=== PATIENT | female | born 1995 | race Caucasian/White ===

== ENCOUNTER 2017-01-12 08:25 | Emergency (ER) | payer BC, OTHER ==
[~2017-01-12] VITALS: Wt 143.0 kg
[~2017-01-12 08:25] MED LIST: NO MEDS
[2017-01-12 08:56] LABS: URINE BLOOD (Dip) POC Negative (NEGATIVE)
--- NOTE | 2017-01-12 08:59 | ERD ---
ER Documentation Chief Complaint Date/Time DATE: 01/12/17 TIME: 08:54 Chief Complaint sore throat for a few days. progressively getting worse. difficult to drink HPI This is a 21-year-old female with a known history of a recent urinary tract infection diagnosed at [facility], 5 days prior to arrival. The patient at that time had been given Macrobid. She however denied any frequency urgency or dysuria had presented to [email or web address] states for evaluation for dehydration. The patient indicates that over the past several days she has had dysphagia with a sore throat. She does however that she is able to tolerate solid and liquid intake but it hurts whenever she swallows. She denies any abdominal pain. She has had no fevers or shaking or chills. She indicates that she has had multiple similar episodes in the past with strep throat. She denies any rashes. The patient does state she has a history of anxiety but does not take any anti-anxiety at this time. She has been taking 300 mg of Motrin for analgesic control which improves her sore throat. The patient denies a productive or nonproductive cough ROS All systems reviewed and are negative except as per history of present illness. Medications Home Meds Reported Medications [No Meds] No Conflict Check 02/20/14 Allergies Allergies: Coded Allergies: No Known Allergy (Unverified , 01/12/17) PMhx/Soc History of Surgery: No Anesthesia Reaction: No Hx Neurological Disorder: No Hx Respiratory Disorders: No Hx Cardiac Disorders: No Hx Psychiatric Problems: No Hx Miscellaneous Medical Probl: Yes (gastric reflux) Hx Alcohol Use: No Hx Substance Use: No Hx Tobacco Use: No Smoking Status: Never smoker Physical Exam Vitals Vital Signs Date Time Temp Pulse Resp B/P Pulse Ox O2 Delivery O2 Flow Rate FiO2 01/12/17 08:26 98.9 81 20 129/80 98 Physical Exam Constitutional:Well-developed. Well-nourished. HEENT:Normocephalic. Atraumatic.Pupils were equal round reactive to light. Moist mucous membranes. Right-sided tonsillar exudate with enlargement of the right tonsil. Uvula midline and no macroglossia or angioedema. Neck: No nuchal rigidity. Right anterior cervical lymphadenopathy. No posterior cervical spine tenderness or step-offs. Respiratory: Not using accessory muscles of respiration.Lungs were clear to auscultation bilaterally. No rhonchi. No rales. No wheezing. Cardiovascular: Regular rate regular rhythm.No murmurs. No rubs were appreciated.S1, S2 normal. Distal pulses are palpable 2+ bilaterally. GI: Abdomen was soft. Nontender. Non Distended. No pulsatile abdominal masses or bruits. No rebound. No guarding. Bowel sounds were present and normal. Procedures/MDM This patient presented to the emergency department with 3 of the 4 center criteria to suggest acute pharyngitis. The patient received Bicillin injection in the emergency department. She was given a medication refill of her Motrin to take for analgesic control. She had no physical exam findings to suggest Anthony's angina and no dental caries to suggest a dental abscess. I obtained a urinalysis to reevaluate for the patient's urinary tract infection. She had a prescription of Macrobid which she had almost completed and was instructed to continue to finish this medication. The patient was discharged home in fair condition. They were instructed to return to the emergency department at any time if there was any worsening of their condition. The patient stated they would follow up with their PCP in the next 24-48 hours to initiate a suitable medication regimen under the care of their PCP as well as to allow their PCP to monitor any drug reactions. The patient was discharged home with prescriptions after they gave informed consent to the new medication. They were also fully informed by myself on the adverse effects and adverse drug interactions in order to provide adequate safeguards to prevent possible adverse reactions to medications. Departure Diagnosis: Primary Impression: Acute pharyngitis Pharyngitis/tonsillitis etiology: streptococcus Qualified Code: J02.0 - Acute streptococcal pharyngitis Condition: Rosanna HECKMASHAJOHN BRYAN Jan 12, 2017 08:59
[2017-01-12] MEDS ORDERED: IBUP-1542 PO (09:00)
[2017-01-12] MEDS ORDERED: PENICILLIN G BENZ 1.2 MIL UNIT SYG IM ONE (09:00)
[2017-01-12 09:29] LABS: ADD UMIC NO; URINE BILIRUBIN (Dip) NEGATIVE (NEGATIVE); URINE BLOOD (Dip) NEGATIVE (NEGATIVE); URINE COLOR LT. YELLOW (YELLOW); URINE GLUCOSE (Dip) NEGATIVE (NEGATIVE); URINE KETONES (Dip) NEGATIVE (NEGATIVE); URINE LEUKOCYTE ESTERASE (Dip) NEGATIVE (NEGATIVE); URINE NITRITE (Dip) NEGATIVE (NEGATIVE); URINE TOTAL PROTEIN (Dip) NEGATIVE (NEGATIVE); URINE UROBILINOGEN (Dip) 0.2 E.U./dL (0.1-1.0)
== END 2017-01-12 09:47 | disposition home or self-care (01) ==
LOC: FTE 08:25
DX: J02.0 Streptococcal pharyngitis (principal); N39.0 Urinary tract infection, site not specified
CPT/HCPCS: 81003; 87086; J0561; 96372

== ENCOUNTER 2017-01-14 10:48 | Emergency (ER) | payer OTHER ==
[~2017-01-14] VITALS: Ht 157.5 cm; Wt 89.0 kg
[~2017-01-14 10:48] MED LIST changes: +IBUP-1542 PO
[2017-01-14 10:53] VITALS: Ht 157.5 cm; Wt 89.0 kg
[2017-01-14] MEDS ORDERED: POLY10DR19 BOTH EYES (11:16)
--- NOTE | 2017-01-14 11:44 | ERD ---
ER Documentation Chief Complaint Date/Time DATE: 01/14/17 TIME: 11:40 Chief Complaint margaret eye discharge, worse left one HPI This patient is a 21-year-old female with no significant medical history presenting to the emergency department for bilateral eye redness, dryness, and discharge which began 2 days ago. The patient states his symptoms have stayed the same. Currently the symptoms are mild. The patient did have bilateral eyelash crusting and it was difficult to open her eyes this morning. The patient denies fevers, chills, urinary symptoms, or other symptoms at this time. The patient has had no visual changes. Patient does not wear contacts. The patient was seen here in this emergency department 2 days ago and was treated successfully for strep pharyngitis. Currently her odynophagia has resolved. ROS All systems reviewed and are negative except as per history of present illness. Medications Home Meds Active Scripts Polymyxin B Sulfate-TMP* (Polymyxin B-TMP Eye Drops*) 10 Ml Drops, 1 DROP BOTH EYES QID for 7 Days, #1 BOTTLE Prov:SHANICE RAYO PA-C 01/14/17 Ibuprofen* (Motrin*) 600 Mg Tab, 600 MG PO Q6, #30 TAB Prov:JOHN FLANAGAN 01/12/17 Reported Medications [No Meds] No Conflict Check 02/20/14 Allergies Allergies: Coded Allergies: No Known Allergy (Unverified , 01/12/17) PMhx/Soc History of Surgery: No Anesthesia Reaction: No Hx Neurological Disorder: No Hx Respiratory Disorders: No Hx Cardiac Disorders: No Hx Psychiatric Problems: No Hx Miscellaneous Medical Probl: No Hx Alcohol Use: No Hx Substance Use: No Hx Tobacco Use: No Smoking Status: Never smoker FmHx Noncontributory for chief complaint. Physical Exam Vitals Vital Signs Date Time Temp Pulse Resp B/P Pulse Ox O2 Delivery O2 Flow Rate FiO2 01/14/17 10:53 98.0 86 18 135/72 99 Physical Exam Const: The patient is resting comfortably in no acute distress. Head: Atraumatic Eyes: There is bilateral conjunctival injection with some eyelash crusting present. There is no active discharge currently. EOMs are intact without pain. ENT: Normal External Ears, Nose and Mouth. Neck: Full range of motion..~ No meningismus. Resp: Clear to auscultation bilaterally Cardio: Regular rate and rhythm, no murmurs Abd: Soft, non tender, non distended. Normal bowel sounds Skin: No petechiae or rashes Back: No midline or flank tenderness Ext: No cyanosis, or edema Neur: Awake and alert Psych: Normal Mood and Affect Procedures/MDM 21-year-old female presents secondary to complaints of bilateral eye redness, irritation, and discharge. On physical examination the patient's vitals are within normal limits. Examination of the eye reveals conjunctival injection bilaterally with some eyelash crusting. EOMs are intact without pain. I have low suspicion for periorbital cellulitis, orbital cellulitis, globe fracture or rupture, septicemia, or other emergent conditions at this time. The patient will be treated as an outpatient with a prescription for Polytrim ophthalmic drops. The patient agrees with the discharge plan and diagnosis. The patient was advised to follow-up with her primary care physician and return to the emergency department immediately with any new or worsening symptoms. She demonstrates good understanding of this information. All questions and concerns were addressed. Departure Diagnosis: Primary Impression: Conjunctivitis Condition: Fair Patient Instructions: Conjunctivitis Caused by Infection Referrals: [facility] YOU HAVE RECEIVED A MEDICAL SCREENING EXAM AND THE RESULTS INDICATE THAT YOU DO NOT HAVE A CONDITION THAT REQUIRES URGENT TREATMENT IN THE EMERGENCY DEPARTMENT. FURTHER EVALUATION AND TREATMENT OF YOUR CONDITION CAN WAIT UNTIL YOU ARE SEEN IN YOUR DOCTORS OFFICE WITHIN THE NEXT 1-2 DAYS. IT IS YOUR RESPONSIBILITY TO MAKE AN APPOINTMENT FOR FOLOW-UP CARE. IF YOU HAVE A PRIMARY DOCTOR --you should call your primary doctor and schedule an appointment IF YOU DO NOT HAVE A PRIMARY DOCTOR YOU CAN CALL OUR PHYSICIAN REFERRAL HOTLINE AT IF YOU CAN NOT AFFORD TO SEE A PHYSICIAN YOU CAN CHOSE FROM THE FOLLOWING [facility] [address] [facility]. [facility] [address] [facility] [address] [facility] [address] [facility]. [facility] [address] [facility]. [employer] [facility] [address] Additional Instructions: Follow-up with your primary care physician within 1 week. Return to the emergency department immediately should you have any new or worsening symptoms, uncontrolled fevers, or other unexplained symptoms. Take all medications as directed. SHANICE RAYO PA-C Jan 14, 2017 11:44
== END 2017-01-14 11:22 | disposition home or self-care (01) ==
LOC: FTE 10:48
DX: H10.9 Unspecified conjunctivitis (principal)
CPT/HCPCS: 99283

== ENCOUNTER 2017-01-28 16:35 | Emergency (ER) | payer OTHER ==
[~2017-01-28] VITALS: Wt 136.0 kg
[~2017-01-28 16:35] MED LIST changes: +POLY10DR19 BOTH EYES
[2017-01-28] MEDS ORDERED: PRED20TA PO (16:57)
[2017-01-28] MEDS ORDERED: MECL-77 PO (16:57)
[2017-01-28] MEDS ORDERED: AZIT250T94 PO (16:57)
--- NOTE | 2017-01-28 17:04 | ERD ---
ER Documentation Chief Complaint Date/Time DATE: 01/28/17 TIME: 17:03 Chief Complaint BILATERAL EAR PAIN WITH NO FEVER. MILD DIZZINESS WITH NO NEURO DEFICIT HPI 21-year-old female presents with bilateral ear pain and sensation of a spinning type dizziness for last 3 days. She may have some mild congestion cough. She denies fevers, vomiting, abdominal pain, chest pain or shortness breath, neck stiffness, head injury or headache or visual changes. ROS All systems reviewed and are negative except as per history of present illness. Medications Home Meds Active Scripts Meclizine Hcl* (Meclizine Hcl*) 25 Mg Tablet, 25 MG PO Q8H Y for DIZZINESS, #14 TAB Prov:NENO SHULTZ MD 01/28/17 Prednisone* (Prednisone*) 20 Mg Tab, 40 MG PO DAILY for 4 Days, TAB Prov:NENO SHULTZ MD 01/28/17 Azithromycin* (Zithromax*) 250 Mg Tablet, 250 MG PO .ZPACK DIRECTED, #6 TAB TAKE 500 MG (2 TABS) THE FIRST DAY THEN 250 MG (1 TAB) DAYS 2-5 Prov:NENO SHULTZ MD 01/28/17 Polymyxin B Sulfate-TMP* (Polymyxin B-TMP Eye Drops*) 10 Ml Drops, 1 DROP BOTH EYES QID for 7 Days, #1 BOTTLE Prov:SHANICE RAYO PA-C 01/14/17 Ibuprofen* (Motrin*) 600 Mg Tab, 600 MG PO Q6, #30 TAB Prov:JOHN FLANAGAN 01/12/17 Reported Medications [No Meds] No Conflict Check 02/20/14 Allergies Allergies: Coded Allergies: No Known Allergy (Unverified , 01/12/17) PMhx/Soc History of Surgery: No Anesthesia Reaction: No Hx Neurological Disorder: No Hx Respiratory Disorders: No Hx Cardiac Disorders: No Hx Psychiatric Problems: No Hx Miscellaneous Medical Probl: No Hx Alcohol Use: No Hx Substance Use: No Hx Tobacco Use: No Physical Exam Vitals Vital Signs Date Time Temp Pulse Resp B/P Pulse Ox O2 Delivery O2 Flow Rate FiO2 01/28/17 16:41 98.8 72 21 140/75 99 Physical Exam Const: [] Alert, [id number] per Head: Atraumatic Eyes: Normal Conjunctiva ENT: Normal External Ears, Nose and Mouth. TMs are bulging with yellow fluid bilaterally. There is no mastoid tenderness. Neck: Full range of motion..~ No meningismus. Resp: Clear to auscultation bilaterally Cardio: Regular rate and rhythm, no murmurs Abd: Soft, non tender, non distended. Normal bowel sounds Skin: No petechiae or rashes Back: No midline or flank tenderness Ext: No cyanosis, or edema Neur: Awake and alert Psych: Normal Mood and Affect Procedures/MDM Patient presents with URI symptoms, signs of otitis media and reproducible or peripheral vertigo. She likely has otitis media with labyrinthitis. Signs or symptoms do not suggest meningitis, central vertigo, additional emergent causes of patient's presenting complaints. She will treated with Zithromax, short course of prednisone for eustachian tube dysfunction and Antivert. The patient was stable with no new complaints during the ER course. Clinically, there is no current evidence to suggest meningitis, sepsis, acute abdomen, pneumonia, acute coronary syndrome, pulmonary embolism, or any other emergent condition appearing to require further evaluation or hospitalization. The patient should certainly return for any new or worsening symptoms per the aftercare instructions. They should otherwise follow-up with her primary care doctor for reevaluation this week. Departure Diagnosis: Primary Impression: Labyrinthitis of both ears Additional Impression: Ear problem Laterality: bilateral Qualified Code: H93.93 - Ear problem, bilateral Condition: Stable Patient Instructions: Inner Ear Problems: Causes of Dizziness (Vertigo), Otitis Media, Abx Tx (Adult) Additional Instructions: Recheck for new or worsening symptoms with primary care doctor. NENO SHULTZ MD Jan 28, 2017 17:04
== END 2017-01-29 00:07 | disposition home or self-care (01) ==
LOC: FTE 16:35
DX: H83.03 Labyrinthitis, bilateral (principal)
CPT/HCPCS: 99284

== ENCOUNTER 2017-03-07 18:54 | Emergency (ER) | payer BC, OTHER ==
[~2017-03-07] VITALS: Ht 160 cm; Wt 136.4 kg
[~2017-03-07 18:54] MED LIST changes: +AZIT250T94 PO; +MECL-77 PO; +PRED20TA PO
[2017-03-07 18:57] VITALS: Ht 160 cm; Wt 136.4 kg
[2017-03-07] MEDS ORDERED: GUAI120S26 PO (19:06)
[2017-03-07] MEDS ORDERED: ALBU8.5H3 INH (19:06)
[2017-03-07] MEDS ORDERED: IBUP-1542 PO (19:06)
[2017-03-07] MEDS ORDERED: CETI10CA PO (19:06)
[2017-03-07] MEDS ORDERED: AZIT250T94 PO (19:06)
--- NOTE | 2017-03-07 19:11 | ERD ---
ER Documentation Chief Complaint Date/Time DATE: 03/07/17 TIME: 19:09 Chief Complaint body aches, cough and weakness x1 week HPI 21-year-old female presents here in emergency department for complaints of body aches cough runny nose nasal congestion generalized body weakness for 1 week. Patient has been having dry cough, with on and off wheezing at times. Patient does not have any chest or palpitations. Patient did not take any medications of symptoms. Patient denies any sick contacts. Patient denies any sore throat or ear pain. ROS All systems reviewed and are negative except as per history of present illness. Medications Home Meds Active Scripts Azithromycin* (Zithromax*) 250 Mg Tablet, 250 MG PO .ZPACK DIRECTED, #6 TAB TAKE 500 MG (2 TABS) THE FIRST DAY THEN 250 MG (1 TAB) DAYS 2-5 Prov:LAURYN LEACH NP 03/07/17 Albuterol Sulfate* (Proair HFA*) 8.5 Gm Hfa.aer.ad, 2 PUFF INH Q4H Y for WHEEZING AND SOB, #1 INHALER Prov:LAURYN LEACH NP 03/07/17 Ibuprofen* (Motrin*) 600 Mg Tab, 600 MG PO Q6H Y for PAIN AND OR ELEVATED TEMP, #30 TAB Prov:LAURYN LEACH NP 03/07/17 Cetirizine Hcl* (Zyrtec*) 10 Mg Capsule, 10 MG PO DAILY, #30 TAB.CHEW Prov:LAURYN LEACH NP 03/07/17 Ozqxcxccfac-Q-Yjtkylmbeh Hb* (Guaifenesin* DM Syrup) 120 Ml Syrup, 10 ML PO Q4H Y for COUGH, #120 ML Prov:LAURYN LEACH NP 03/07/17 Meclizine Hcl* (Meclizine Hcl*) 25 Mg Tablet, 25 MG PO Q8H Y for DIZZINESS, #14 TAB Prov:NENO SHULTZ MD 01/28/17 Prednisone* (Prednisone*) 20 Mg Tab, 40 MG PO DAILY for 4 Days, TAB Prov:NENO SHULTZ MD 01/28/17 Azithromycin* (Zithromax*) 250 Mg Tablet, 250 MG PO .SUE DIRECTED, #6 TAB TAKE 500 MG (2 TABS) THE FIRST DAY THEN 250 MG (1 TAB) DAYS 2-5 Prov:NENO SHULTZ MD 01/28/17 Polymyxin B Sulfate-TMP* (Polymyxin B-TMP Eye Drops*) 10 Ml Drops, 1 DROP BOTH EYES QID for 7 Days, #1 BOTTLE Prov:SHANICE RAYO PA-C 01/14/17 Ibuprofen* (Motrin*) 600 Mg Tab, 600 MG PO Q6, #30 TAB Prov:LETHA FLANAGANA 01/12/17 Reported Medications [No Meds] No Conflict Check 02/20/14 Allergies Allergies: Coded Allergies: No Known Allergy (Unverified , 03/07/17) PMhx/Soc Medical and Surgical Hx: pt denies Medical Hx, pt denies Surgical Hx History of Surgery: No Anesthesia Reaction: No Hx Neurological Disorder: No Hx Respiratory Disorders: No Hx Cardiac Disorders: No Hx Psychiatric Problems: No Hx Miscellaneous Medical Probl: No Hx Alcohol Use: No Hx Substance Use: No Hx Tobacco Use: No FmHx Family History: No coronary disease, No diabetes, No other Physical Exam Vitals Vital Signs Date Time Temp Pulse Resp B/P Pulse Ox O2 Delivery O2 Flow Rate FiO2 03/07/17 18:57 97.0 85 18 145/74 97 Physical Exam GENERAL: The patient is well developed and appropriate for usual state of health, in no apparent distress. HEENT: Atraumatic. Ears: Normal tympanic membrane, no erythema or bulging. No ear canal swelling. No ear discharge. Nose: Erythematous nasal turbinates with clear nasal discharge. Throat: oropharynx erythematous with postnasal drip. No tonsillar swelling or tonsillar exudates. No lymphadenopathy. CHEST: Clear to auscultation bilaterally. There are no rales, wheezes or rhonchi. HEART: Regular rate and rhythm. No murmurs, clicks, rubs or gallops. No S3 or S4. ABDOMEN: Soft, nontender and nondistended. Good bowel sounds. No rebound or guarding. No gross peritonitis. No gross organomegaly or masses. No Abdi sign or McBurney point tenderness. BACK: No midline or flank tenderness. EXTREMITIES: Equal pulses bilaterally. There is no peripheral clubbing, cyanosis or edema. No focal swelling or erythema. Full range of motion. Grossly neurovascularly intact. NEURO: Alert and oriented. Cranial nerves 2-12 intact. Motor strength in all 4 extremities with 5/5 strength. Sensation grossly intact. Normal speech and gait. SKIN: There is no apparent rash or petechia. The skin is warm and dry. HEMATOLOGIC AND LYMPHATIC: There is no evidence of excessive bruising or lymphedema. No gross cervical, axillary, or inguinal lymphadenopathy. Procedures/MDM Medical Decision Making: Patient symptoms are most likely consistent with acute bronchitis, possibly atypical infection. There is low suspicion for Pneumonia at this time since patients lungs sounds are clear, patient O2 saturation is normal and patient doesnt show any respiratory distress. Radiology exams are not indicated at this time. Patient does not have any wheezing. There is low suspicion for other cardiopulmonary emergencies at this time such as CHF, Pulmonary Embolism, Pneumothorax, Aortic Aneurysm or any other cardiopulmonary emergencies at this time. There is low suspicion for sepsis. Patient appears well and is hemodynamically stable. Patient does not have any fever. Disposition: Home. Condition: Stable Prescriptions: Guaifenesin DM Zyrtec ibuprofen albuterol azithromycin Instructions: Patient is advised to take medications as prescribed. Patient is advised to rest. Patient advised to increase fluid intake, do humidifier at home and if possible, do salt water gargles. Patient is advised that if symptoms are worse, shortness of breath, uncontrolled fever, stridor, vomiting, worst signs and symptoms to return to emergency department immediately. Otherwise, patient is advised to follow up with primary doctor in 5-7 days. Departure Diagnosis: Primary Impression: Acute bronchitis Bronchitis organism: unspecified organism Qualified Code: J20.9 - Acute bronchitis, unspecified organism Condition: Stable Patient Instructions: Bronchitis With Wheezing (Adult) LAURYN LEACH NP March 07, 2017 19:11
== END 2017-03-07 19:09 | disposition home or self-care (01) ==
LOC: E/R 18:54
DX: J20.9 Acute bronchitis, unspecified (principal)
CPT/HCPCS: 99284

== ENCOUNTER 2017-04-22 21:50 | Emergency (ER) | END 2017-04-23 01:15 | disposition home or self-care (01) | DX: R10.31 Right lower quadrant pain (principal); N30.00 Acute cystitis without hematuria; N76.0 Acute vaginitis; R10.2 Pelvic and perineal pain ==

== ENCOUNTER 2017-06-05 17:41 | Emergency (ER) | payer BC, OTHER ==
[~2017-06-05] VITALS: Ht 152.4 cm; Wt 138.5 kg
[~2017-06-05 17:41] MED LIST changes: +ALBU8.5H3 INH; +CEPH-443 PO; +CETI10CA PO; +CLOT30CR24 TOP; +GUAI120S26 PO; +METR500T PO; +TRAM50TA2 PO
[2017-06-05 17:44] VITALS: Ht 152.4 cm; Wt 138.5 kg
[2017-06-05] MEDS ORDERED: KETOROLAC 60 MG INJ IM STA (18:09)
--- NOTE | 2017-06-05 18:09 | ERD ---
ER Documentation Chief Complaint Date/Time DATE: 06/05/17 TIME: 18:00 Chief Complaint Complains of a headache HPI 21-year-old female presented emergency department for headache for 1 and half week, dysuria on and off for the past week. Also added nasal congestion. Denies that this is the worst headache of her life, head trauma, head injury, loss of consciousness, dizziness, blurry vision, changes in vision, light sensitivity, photophobia, ear pain, throat pain, difficulty swallowing, neck pain, shoulder pain, chest pain, cough, hemoptysis, abdominal pain, back pain, loss of appetite, nausea, vomiting, hematochezia, diarrhea, constipation, , the possibility of being , bladder and bowel incontinences, extremity weakness, extremity tenderness, numbness or tingling sensation, difficulty walking, recent travel, recent exposure to illness, recent antibiotic use in the last 3 months, fever, chills. Allergy: No known drug allergies. PMH: Gastritis, anxiety. Family medical history: Denies family history of stroke, heart attack before age 50. AO LMP: June 03, 2017. Medications: Surgery: Denies. Primary Social History: Full-time student. Working part-time. Denies smoking, use of alcohol, use of illegal drugs. ROS All systems reviewed and are negative except as per history of present illness. Medications Home Meds Active Scripts Meclizine Hcl* (Meclizine Hcl*) 25 Mg Tablet, 25 MG PO Q12 Y for DIZZINESS, #20 TAB Prov:KATHERYN ALMARAZ 06/05/17 Ibuprofen* (Motrin*) 800 Mg Tab, 800 MG PO Q8 Y for PAIN AND OR ELEVATED TEMP, # 30 TAB Prov:KATHERYN ALMARAZ 06/05/17 Amoxicillin/Potassium Clav (Amox-Clav 875-125 mg Tablet) 875-125 mg Tab, 1 TAB PO BID for 7 Days, #14 TAB Prov:KATHERYN ALMARAZ 06/05/17 Clotrimazole* (Clotrimazole* AF) 1% - 30 Gm Cream.gm., 1 APPLIC TOP BID for 7 Days, TUB Prov:LAURYN LEACH NP 04/23/17 Metronidazole* (Flagyl*) 500 Mg Tablet, 500 MG PO TID for 10 Days, TAB Prov:LAURYN LEACH NP 04/23/17 Cephalexin* (Keflex*) 500 Mg Capsule, 500 MG PO QID for 10 Days, CAP Prov:LAURYN LEACH NP 04/23/17 Ibuprofen* (Motrin*) 600 Mg Tab, 600 MG PO Q6H Y for PAIN AND OR ELEVATED TEMP, #30 TAB Prov:LAURYN LEACH NP 04/23/17 Tramadol HCl (Tramadol HCl) 50 Mg Tablet, 50 MG PO Q6 for SEVERE PAIN LEVEL 7-10 , #20 TAB Prov:LAURYN LEACH NP 04/23/17 Azithromycin* (Zithromax*) 250 Mg Tablet, 250 MG PO .SUE DIRECTED, #6 TAB TAKE 500 MG (2 TABS) THE FIRST DAY THEN 250 MG (1 TAB) DAYS 2-5 Prov:LAURYN LEACH NP 03/07/17 Albuterol Sulfate* (Proair HFA*) 8.5 Gm Hfa.aer.ad, 2 PUFF INH Q4H Y for WHEEZING AND SOB, #1 INHALER Prov:LAURYN LEACH NP 03/07/17 Ibuprofen* (Motrin*) 600 Mg Tab, 600 MG PO Q6H Y for PAIN AND OR ELEVATED TEMP, #30 TAB Prov:LAURYN LEACH NP 03/07/17 Cetirizine Hcl* (Zyrtec*) 10 Mg Capsule, 10 MG PO DAILY, #30 TAB.CHEW Prov:LAURYN LEACH NP 03/07/17 Vmvjphkodjq-U-Dwkwhgqazk Hb* (Guaifenesin* DM Syrup) 120 Ml Syrup, 10 ML PO Q4H Y for COUGH, #120 ML Prov:LAURYN LEACH NP 03/07/17 Meclizine Hcl* (Meclizine Hcl*) 25 Mg Tablet, 25 MG PO Q8H Y for DIZZINESS, #14 TAB Prov:NENO SHULTZ MD 01/28/17 Prednisone* (Prednisone*) 20 Mg Tab, 40 MG PO DAILY for 4 Days, TAB Prov:NENO SHULTZ MD 01/28/17 Azithromycin* (Zithromax*) 250 Mg Tablet, 250 MG PO .ZPACK DIRECTED, #6 TAB TAKE 500 MG (2 TABS) THE FIRST DAY THEN 250 MG (1 TAB) DAYS 2-5 Prov:NENO SHULTZ MD 01/28/17 Polymyxin B Sulfate-TMP* (Polymyxin B-TMP Eye Drops*) 10 Ml Drops, 1 DROP BOTH EYES QID for 7 Days, #1 BOTTLE Prov:SHANICE RAYO PA-C 01/14/17 Ibuprofen* (Motrin*) 600 Mg Tab, 600 MG PO Q6, #30 TAB Prov:JOHN FLANAGAN 01/12/17 Reported Medications [No Meds] No Conflict Check 02/20/14 Allergies Allergies: Coded Allergies: No Known Allergy (Unverified , 03/07/17) PMhx/Soc History of Surgery: No Anesthesia Reaction: No Hx Neurological Disorder: No Hx Respiratory Disorders: No Hx Cardiac Disorders: No Hx Psychiatric Problems: No Hx Miscellaneous Medical Probl: Yes (anemia, gastritis) Hx Alcohol Use: No Hx Substance Use: No Hx Tobacco Use: No Physical Exam Vitals Vital Signs Date Time Temp Pulse Resp B/P Pulse Ox O2 Delivery O2 Flow Rate FiO2 06/05/17 17:44 98.3 81 20 110/56 98 Physical Exam CONSTITUTIONAL: Well-appearing; well-nourished; in no apparent distress. HEAD: Normocephalic; atraumatic. EYES: Conjunctiva clear, sclera non-icteric, EOM intact. PERRL Ears: Hearing intact. EACs clear, TMs non-bulging, non-inflamed, translucent & mobile, ossicles normal appearance, No obstructions, no erythema, no discharges. 20% earwax bilaterally. Nose: No obstructions. No polyps. No external lesions. Mucosa non-inflamed. No external lesions, septum and turbinates normal. No rhinorrhea. No discharges. Frontal and maxillary sinus tenderness to palpation. MOUTH: Moist mucous membranes, no lesion, no obstructions, no vesicles, no thrush, patent airway Throat: Uvula in midline. Right tonsil is +1 with no erythema, no exudate. Left tonsil is +1 with no erythema, no exudate. Tolerating secretions well. Good gag reflex. Patent airway. Neck: Supple, without lesions, bruits, or adenopathy. No mass. Thyroid non- enlarged and non-tender to palpation. CHEST: Symmetrical chest. Respirations even and not labored. No retractions noted. CARDIOVASCULAR: Normal S1, S2. RRR. No murmurs, gallops. RESPIRATORY: Normal chest excursion with respiration; breath sounds clear and equal bilaterally; no wheezes, rhonchi, or rales. Breathing even and unlabored. Speaking in clear, full, and complete sentences w/ ease. ABDOMEN: Normal bowel sounds normal. Soft, round, non-distended, non-guarding, no tenderness, no rebound, no organomegaly, no masses, no pulsating abdominal mass. No hernia. No peritoneal signs. : No CVA tenderness. BACK: Symmetrical shoulder. Spine is midline without deformity, tenderness. No evidence of trauma or deformity. PELVIS: Stable pelvis. No evidence of trauma or deformity. MUSCULOSKELETAL: Normal gait and station. No misalignment, asymmetry, crepitation, defects, tenderness, masses, effusions, decreased range of motion, instability, atrophy or abnormal strength or tone in the head, neck, spine, ribs , pelvis or extremities. No calf tenderness. NEUROVASCULAR: Distal pulses are present. Pedal pulse are present, equal, and normal. Capillary refills are < 2 seconds. NEUROLOGIC: Alert and oriented x4. Speaks full and clear sentences. Cranial Nerves II-XII normal. Sensation to pain, touch, and proprioception normal. Grossly unremarkable. No neurologic deficits. Romberg test is negative. PSYCHOLOGICAL: The patients mood and manner are appropriate. No hallucinations , delusions. Not SI. Not HI. Has the capacity to decide for self SKIN: Normal for age and ethnicity; warm; dry; good turgor; no apparent lesions or exudates. No rashes, hives, discoloration. Intact. Results 24 hrs Laboratory Tests Test 06/05/17 18:49 Bedside Urine pH (LAB) 6.0 Bedside Urine Protein (LAB) Negative Bedside Urine Glucose (UA) Negative Bedside Urine Ketones (LAB) Negative Bedside Urine Blood Negative Bedside Urine Nitrite (LAB) Negative Bedside Urine Leukocyte Esterase (L Negative Current Medications Medications (Trade) Dose Ordered Sig/Leon Route PRN Reason Start Time Stop Time Status Last Admin Dose Admin Ketorolac Tromethamine (Toradol) 60 mg ONCE STAT IM 06/05/17 18:09 06/05/17 18:10 DC Procedures/MDM Examination: Please see physical examination. Disease process, medical treatment was explained to the patient and family member. They verbalized understanding and agreed with the diagnostic tests, medical treatment, and follow-up care. POC urine : Negative. POC urine dip: Negative. Treatment: Toradol. Meclizine. Re-evaluation: Denies headache, dizziness, blurry vision, neck pain, shoulder pain, chest pain, back pain, abdominal pain, nausea, vomiting. No episode of emesis in the emergency department. Alert and oriented 4. Speaks full and clear sentences. Respirations even and unlabored. Lung sounds clear to auscultation. Active bowel sounds. There is no right upper/right lower/ epigastric/left upper/left lower abdominal tenderness and light and deep palpation. Negative on Rovsings sign. Negative Perry sign. Able to jump 5 times without developing right-sided abdominal pain. No peritoneal signs. Ambulatory with steady gait. No neurovascular deficits. No neurological deficits. Consultation: None. Differential diagnosis: Subarachnoid hemorrhage versus stroke versus meningitis versus bacterial sinusitis versus viral sinusitis versus upper respiratory infection versus urinary tract infection versus cystitis Medical decision makin-year-old female presented emergency department for headache for 1 and half week, dysuria on and off for the past week. Patient's complaint, patient's history about her complaint, my physical findings are consistent my final diagnosis of sinusitis Medications prescribed are the following: Augmentin. Motrin. Meclizine. Patient and family member are made aware of the side effects and adverse reactions of the medications prescribed. Instructed on when to seek emergent and medical attention in case allergic/anaphylactic reactions or severe side effects and or adverse reactions to medications. Patient and family member verbalized understanding. Patient instructed Instructed to follow-up with his PCP in 24-48 hours. . Instructed to Call 911 for chest pain, shortness of breath. Advised to come back here in ED as soon as possible for severity of symptoms which includes but not limited to: any new symptoms; shortness of breath/difficulty of breathing; cardiovascular changes; severe gastrointestinal symptoms; signs and symptoms of bleeding and or infection; signs of compartment syndrome/neurovascular changes; neurological changes/deficits. Patient and family member verbalized understanding. Upon discharge, patient is alert and oriented x 4, speaks full and clear sentences, denies pain, has no neurological deficits, has no neurovascular deficits, difficulty of breathing. Breathing even and unlabored. Lung sounds are clear to auscultation. Not in distress. Appears comfortable. Ambulatory with steady gait. Appears satisfied with care provided here in ED. Departure Diagnosis: Primary Impression: Headache Additional Impression: Sinusitis, acute Condition: Stable Additional Instructions: Instructed to follow-up with his PCP in 24-48 hours. . Instructed to Call 911 for chest pain, shortness of breath. Advised to come back here in ED as soon as possible for severity of symptoms which includes but not limited to: any new symptoms; shortness of breath/difficulty of breathing; cardiovascular changes; severe gastrointestinal symptoms; signs and symptoms of bleeding and or infection; signs of compartment syndrome/neurovascular changes; neurological changes/deficits. Patient and family member verbalized understanding. KATHERYN ALMARAZ Jun 05, 2017 18:08
[2017-06-05] MEDS ORDERED: AMOX1TAB10 PO (18:12)
[2017-06-05] MEDS ORDERED: IBUP800T25 PO (18:12)
[2017-06-05] MEDS ORDERED: MECL-77 PO (18:13)
[2017-06-05 18:44] LABS: URINE BLOOD (Dip) POC Negative (NEGATIVE)
[2017-06-05 19:35] VITALS: BP 135/82; PULSE 82; RESP 16; TEMP 98.5
== END 2017-06-05 19:54 | disposition home or self-care (01) ==
LOC: FTE 17:41
DX: R51 Headache (principal); J01.90 Acute sinusitis, unspecified
CPT/HCPCS: 81003; 99283; J1885

== ENCOUNTER 2017-09-08 02:27 | Emergency (ER) | payer BC, OTHER ==
[~2017-09-08] VITALS: Ht 157.5 cm; Wt 126.0 kg
[~2017-09-08 02:27] MED LIST changes: +AMOX1TAB10 PO; +IBUP800T25 PO
[2017-09-08 02:32] VITALS: Ht 157.5 cm; Wt 126.0 kg
[2017-09-08] MEDS ORDERED: ONDANSETRON 4 MG INJ IV STA (04:31)
[2017-09-08] MEDS ORDERED: HYDROCODONE/APAP (5/325) TAB PO ONE (05:00)
[2017-09-08] MEDS ORDERED: FAMOTIDINE 20 MG INJ IV ONE (05:00)
[2017-09-08] MEDS ORDERED: SOD CHLORIDE 0.9% 1,000 ML IV ONE (05:00)
[2017-09-08 05:36] LABS: BASOPHILS % 0.1 % (0.0-2.0); EOSINOPHILS % 0.4 % (0.0-7.0); HEMATOCRIT 38.8 % (37.0-47.0); HEMOGLOBIN 12.7 g/dl (12.0-16.0); LYMPHOCYTES # 2.2 10^3/ul (0.8-2.9); LYMPHOCYTES % 26.9 % (15.0-51.0); MEAN CORPUSCULAR HEMOGLOBIN 25.5 pg (29.0-33.0); MEAN CORPUSCULAR HGB CONC 32.7 g/dl (32.0-37.0); MEAN CORPUSCULAR VOLUME 77.9 fl (82.0-101.0); MEAN PLATELET VOLUME 10.3 fl (7.4-10.4); MONOCYTE # 0.5 10^3/ul (0.3-0.9); MONOCYTES % 5.9 % (0.0-11.0); NEUTROPHIL # 5.5 10^3/ul (1.6-7.5); NEUTROPHILS % 66.6 % (39.0-77.0); PLATELET COUNT 273 10^3/UL (140-415); RED BLOOD COUNT 4.98 10^6/ul (4.20-5.40); RED CELL DISTRIBUTION WIDTH 14.9 % (11.5-14.5); WHITE BLOOD COUNT 8.3 10^3/ul (4.8-10.8)
--- NOTE | 2017-09-08 06:00 | ERD ---
ER Documentation Chief Complaint Chief Complaint headache/dizziness/nausea/lightheaded x 2 weeks (LAURYN LEACH NP) HPI 21-year-old female presents here to emergency department for complaints of headache dizziness nausea lightheadedness for the last 2 weeks. Patient's complaint of headache throbbing pain, 8/10 scale, accompanied with nausea, denies any head trauma. Patient denies any blurry vision. Patient denies any fever chills. Patient denies any neck pain. Patient denies any other symptoms. Patient denies any changes in balance or memory. (LAURYN LEACH NP) ROS All systems reviewed and are negative except as per history of present illness. (LAURYN LEACH NP) Medications Home Meds Active Scripts Ondansetron (Ondansetron Odt) 4 Mg Tab.rapdis, 4 MG PO Q6H Y for NAUSEA AND/OR VOMITING, #20 TAB Prov:LAURYN LEACH NP 09/08/17 Jgbxqoyspfbmb-Fgrrxpdesg-Rpbpbmdw-Codeine* (Fioricet w/Codeine*) [id number] -30MG Cap, 1 CAP PO Q4H Y for PAIN LEVEL 1-5, #20 CAP Prov:LAURYN LEACH NP 09/08/17 Meclizine Hcl* (Meclizine Hcl*) 25 Mg Tablet, 25 MG PO Q12 Y for DIZZINESS, #20 TAB Prov:KATHERYN ALMARAZ 06/05/17 Ibuprofen* (Motrin*) 800 Mg Tab, 800 MG PO Q8 Y for PAIN AND OR ELEVATED TEMP, # 30 TAB Prov:KATHERYN ALMARAZ 06/05/17 Amoxicillin/Potassium Clav (Amox-Clav 875-125 mg Tablet) 875-125 mg Tab, 1 TAB PO BID for 7 Days, #14 TAB Prov:KATHERYN ALMARAZ 06/05/17 Clotrimazole* (Clotrimazole* AF) 1% - 30 Gm Cream.gm., 1 APPLIC TOP BID for 7 Days, TUB Prov:LAURYN LEACH NP 04/23/17 Metronidazole* (Flagyl*) 500 Mg Tablet, 500 MG PO TID for 10 Days, TAB Prov:LAURYN LEACH NP 04/23/17 Cephalexin* (Keflex*) 500 Mg Capsule, 500 MG PO QID for 10 Days, CAP Prov:LAURYN LEACH NP 04/23/17 Ibuprofen* (Motrin*) 600 Mg Tab, 600 MG PO Q6H Y for PAIN AND OR ELEVATED TEMP, #30 TAB Prov:LAURYN LEACH NP 04/23/17 Tramadol HCl (Tramadol HCl) 50 Mg Tablet, 50 MG PO Q6 for SEVERE PAIN LEVEL 7-10 , #20 TAB Prov:LAURYN LEACH NP 04/23/17 Azithromycin* (Zithromax*) 250 Mg Tablet, 250 MG PO .AbielPACK DIRECTED, #6 TAB TAKE 500 MG (2 TABS) THE FIRST DAY THEN 250 MG (1 TAB) DAYS 2-5 Prov:LAURYN LEACH NP 03/07/17 Albuterol Sulfate* (Proair HFA*) 8.5 Gm Hfa.aer.ad, 2 PUFF INH Q4H Y for WHEEZING AND SOB, #1 INHALER Prov:LAURYN LEACH NP 03/07/17 Ibuprofen* (Motrin*) 600 Mg Tab, 600 MG PO Q6H Y for PAIN AND OR ELEVATED TEMP, #30 TAB Prov:LAURYN LEACH NP 03/07/17 Cetirizine Hcl* (Zyrtec*) 10 Mg Capsule, 10 MG PO DAILY, #30 TAB.CHEW Prov:LAURYN LEACH NP 03/07/17 Wkvwolmtzyk-H-Jjhdfxtala Hb* (Guaifenesin* DM Syrup) 120 Ml Syrup, 10 ML PO Q4H Y for COUGH, #120 ML Prov:LAURYN LEACH NP 03/07/17 Meclizine Hcl* (Meclizine Hcl*) 25 Mg Tablet, 25 MG PO Q8H Y for DIZZINESS, #14 TAB Prov:NENO SHULTZ MD 01/28/17 Prednisone* (Prednisone*) 20 Mg Tab, 40 MG PO DAILY for 4 Days, TAB Prov:NENO SHULTZ MD 01/28/17 Azithromycin* (Zithromax*) 250 Mg Tablet, 250 MG PO .ZPACK DIRECTED, #6 TAB TAKE 500 MG (2 TABS) THE FIRST DAY THEN 250 MG (1 TAB) DAYS 2-5 Prov:NENO SHULTZ MD 01/28/17 Polymyxin B Sulfate-TMP* (Polymyxin B-TMP Eye Drops*) 10 Ml Drops, 1 DROP BOTH EYES QID for 7 Days, #1 BOTTLE Prov:SHANICE RAYO PA-C 01/14/17 Ibuprofen* (Motrin*) 600 Mg Tab, 600 MG PO Q6, #30 TAB Prov:JOHN FLANAGAN 01/12/17 Reported Medications [No Meds] No Conflict Check 02/20/14 Allergies Allergies: Coded Allergies: No Known Allergy (Unverified , 09/08/17) PMhx/Soc Medical and Surgical Hx: pt denies Surgical Hx History of Surgery: No Anesthesia Reaction: No Hx Neurological Disorder: No Hx Respiratory Disorders: No Hx Cardiac Disorders: No Hx Psychiatric Problems: Yes (anxiety, depression) Hx Miscellaneous Medical Probl: Yes (anemia, gastritis) Hx Alcohol Use: No Hx Substance Use: No Hx Tobacco Use: No Smoking Status: Never smoker (LAURYN LEACH NP) FmHx Family History: No coronary disease, No diabetes, No other (LAURYN LEACH NP) Physical Exam Vitals Vital Signs Date Time Temp Pulse Resp B/P Pulse Ox O2 Delivery O2 Flow Rate FiO2 09/08/17 02:32 98.2 100 20 124/58 97 (DAYSI COON PA-C) Physical Exam GENERAL: The patient is well developed and appropriate for usual state of health, in no apparent distress. CHEST: Clear to auscultation bilaterally. There are no rales, wheezes or rhonchi. HEART: Regular rate and rhythm. No murmurs, clicks, rubs or gallops. No S3 or S4. ABDOMEN: Soft, nontender and nondistended. Good bowel sounds. No rebound or guarding. No gross peritonitis. No gross organomegaly or masses. No Abdi sign or McBurney point tenderness. BACK: No midline or flank tenderness. EXTREMITIES: Equal pulses bilaterally. There is no peripheral clubbing, cyanosis or edema. No focal swelling or erythema. Full range of motion. Grossly neurovascularly intact. NEURO: Alert and oriented. Cranial nerves 2-12 intact. Motor strength in all 4 extremities with 5/5 strength. Sensation grossly intact. Normal speech and gait. Negative Romberg sign. Negative pronator drift SKIN: There is no apparent rash or petechia. The skin is warm and dry. HEMATOLOGIC AND LYMPHATIC: There is no evidence of excessive bruising or lymphedema. No gross cervical, axillary, or inguinal lymphadenopathy. (LAURYN LEACH NP) Result Diagram: 09/08/1752709/08/17527 Results 24 hrs Laboratory Tests Test 09/08/17 05:28 White Blood Count 8.310^3/ul Red Blood Count 4.9810^6/ul Hemoglobin 12.7g/dl Hematocrit 38.8% Mean Corpuscular Volume 77.9fl Mean Corpuscular Hemoglobin 25.5pg Mean Corpuscular Hemoglobin Concent 32.7g/dl Red Cell Distribution Width 14.9% Platelet Count 88746^3/UL Mean Platelet Volume 10.3fl Neutrophils % 66.6% Lymphocytes % 26.9% Monocytes % 5.9% Eosinophils % 0.4% Basophils % 0.1% Nucleated Red Blood Cells % 0.0/100WBC Neutrophils # 5.510^3/ul Lymphocytes # 2.210^3/ul Monocytes # 0.510^3/ul Eosinophils # 0.010^3/ul Basophils # 0.010^3/ul Nucleated Red Blood Cells # 0.010^3/ul Sodium Level 141mmol/L Potassium Level 3.9mmol/L Chloride Level 102mmol/L Carbon Dioxide Level 27mmol/L Anion Gap 16 Blood Urea Nitrogen 10mg/dl Creatinine 0.67mg/dl Glucose Level 93mg/dl Calcium Level 9.1mg/dl Total Bilirubin 0.4mg/dl Direct Bilirubin 0.00mg/dl Indirect Bilirubin 0.4mg/dl Aspartate Amino Transf (AST/SGOT) 28IU/L Alanine Aminotransferase (ALT/SGPT) 33IU/L Alkaline Phosphatase 103IU/L Total Protein 7.1g/dl Albumin 3.9g/dl Globulin 3.20g/dl Albumin/Globulin Ratio 1.21 Lipase 77U/L Current Medications Medications (Trade) Dose Ordered Sig/Leon Route PRN Reason Start Time Stop Time Status Last Admin Dose Admin Sodium Chloride (NS) 1,000 ml @ 1,000 mls/hr Q1H ONCE IV 09/08/17 05:00 09/08/17 05:59 DC 09/08/17 05:30 Ondansetron HCl (Zofran Inj) 4 mg ONCE STAT IV 09/08/17 04:31 09/08/17 04:34 DC 09/08/17 05:30 Famotidine (Pepcid Iv) 20 mg ONCE ONCE IV 09/08/17 05:00 09/08/17 05:01 DC 09/08/17 05:30 Acetaminophen/ Hydrocodone Bitart ([place] (5/325)) 1 tab ONCE ONCE PO 09/08/17 05:00 09/08/17 05:01 DC 09/08/17 05:16 DIAGNOSTIC IMAGING REPORT Patient: ELDA DELGADO : 1995 Age: 21 Sex: F MR #: [id number] DOS: 09/08/17 0431 Ordering MD: LAURYN LEACH NP Location: [facility] [place] Room/Bed: PROCEDURE: CT Brain without contrast. CLINICAL INDICATION: Headache TECHNIQUE: Axial images from the skull base through the vertex without IV contrast. Multiplanar reformatted images were made. Images were reviewed on a PACS workstation. The CTDIvol is 43.6 a mGy and the DLP is a 720.23 mGycm. One or more of the following dose reduction techniques were used: automated exposure control, adjustment of the mA and/or kV according to patient size, or use of iterative reconstruction technique. DICOM images are available. COMPARISON: None. FINDINGS: The ventricles and cisterns are normal for age. There is no evidence for territorial infarction or intracranial hemorrhage. No mass or midline shift is seen. No extra-axial fluid collection is seen. The visualized paranasal sinuses and mastoids are clear.. IMPRESSION: No definite acute intracranial abnormality. RPTAT: [facility] Citlali Cook, Physician Date Time Electronically viewed and signed by Citlali Cook Physician on 09/08/2017 06 :18 LE/ CC: LAURYN LEACH NP (DAYSI COON PA-C) Results 24 hrs Patient was given medication for pain here in emergency department, after treatment, patient verbalized feeling much better. Patient's pain is improved. Patient was given Zofran here in the emergency department. After treatment, patient was able to tolerate po fluids here in the emergency department without any vomiting. There is no signs and symptoms of dehydration. (LAURYN LEACH NP) Procedures/MDM Medical Decision Making: Patient symptoms are consistent with migraine headache , possible tension headache. There is low suspicion for neurological emergencies at this time since patients neurologic exam is normal. Patient did not have any altered level consciousness, vomiting, changes in balance or memory and did not have any head injury. Patients CT scan of the head does not show any neurological emergencies at this time. No suspicion for subarachnoid hemorrhage, no sudden onset of headache, patient has been having headache for the last 2 weeks. Number puncture not indicated at this time. No meningeal signs noted. Patient's hemoglobin and hematocrit is normal, patient is not severely anemic, no symptoms of any symptomatic anemia. Rx: Fioricet with codeine, Zofran Dispostion: Home. Stable Disclaimer: Inadvertent spelling and grammatical errors are likely due to EHR/ dictation software use and do not reflect on the overall quality of patient care. Also, please note that the electronic time recorded on this note does not necessarily reflect the actual time of the patient encounter. (LAURYN LEACH NP) Departure Diagnosis: Primary Impression: Headache Headache type: unspecified Headache chronicity pattern: acute headache Intractability: not intractable Qualified Code: R51 - Acute nonintractable headache, unspecified headache type Condition: Stable LAURYN LEACH NP Sep 08, 2017 06:00 DAYSI COON PA-C Sep 08, 2017 06:28
[2017-09-08] MEDS ORDERED: ABCC1C PO (06:05)
[2017-09-08] MEDS ORDERED: ONDA4TAB14 PO (06:05)
[2017-09-08 06:06] LABS: ALBUMIN 3.9 g/dl (3.3-4.9); ALBUMIN/GLOBULIN RATIO 1.21; BILIRUBIN,INDIRECT 0.4 mg/dl (0-1.1); BILIRUBIN,TOTAL 0.4 mg/dl (0.2-1.3); CALCIUM 9.1 mg/dl (8.4-10.2); CREATININE 0.67 mg/dl (0.44-1.00); POTASSIUM 3.9 mmol/L (3.5-5.1); TOTAL PROTEIN 7.1 g/dl (6.1-8.1)
--- NOTE | 2017-09-08 06:18 | RADRPT ---
PROCEDURE: CT Brain without contrast. CLINICAL INDICATION: Headache TECHNIQUE: Axial images from the skull base through the vertex without IV contrast. Multiplanar r eformatted images were made. Images were reviewed on a PACS workstation. The CTDIvol is 43.6 a mGy and the DLP is a 720.23 mGycm. One or more of the following dose reduction techniques were used: a utomated exposure control, adjustment of the mA and/or kV according to patient size, or use of itera tive reconstruction technique. DICOM images are available. COMPARISON: None. FINDINGS: The ventricles and cisterns are normal for age. There is no evidence for territorial infarction or intracranial hemorrhage. No mass or midline shift is seen. No extra-axial fluid collection is seen . The visualized paranasal sinuses and mastoids are clear.. IMPRESSION: No definite acute intracranial abnormality. RPTAT: [facility] Physician Blanca Date Time Electronically viewed and signed by Physician Blanca on 09/08/2017 06:18 JAMES/
[2017-09-08 06:54] VITALS: BP 124/75; PULSE 81; RESP 18; TEMP 98.5
== END 2017-09-08 06:55 | disposition home or self-care (01) ==
LOC: FTE 02:27
DX: R51 Headache (principal)
CPT/HCPCS: 70450; 80053; 83690; 85025; 96374; 96375; 99285; J2405; J7030

== ENCOUNTER 2017-09-27 10:08 | Emergency (ER) | payer BC, OTHER ==
[~2017-09-27] VITALS: Ht 157.5 cm; Wt 132.4 kg
[~2017-09-27 10:08] MED LIST changes: +ABCC1C PO; +ONDA4TAB14 PO
[2017-09-27 10:09] VITALS: Ht 157.5 cm; Wt 132.4 kg
--- NOTE | 2017-09-27 11:23 | ERD ---
ER Documentation Chief Complaint Chief Complaint flank pain with burning with urination x 2 weeks, head pain x 1 month HPI 21-year-old female presents emergency department for a burning urination for about 2 weeks. Stated that a change in the appearance of her urine was cloudy yesterday and today. Patient was also asking for a meclizine prescription. Last menstrual period was last Tuesday. A0. Denies headache, dizziness, blurry vision, throat pain, difficulty swallowing, shoulder pain, chest pain, back pain, abdominal pain, nausea, vomiting, constipation, diarrhea, hematuria, vaginal bleeding, vaginal discharge, or possibility of being , being sexually active, recent long travel, recent antibiotic use in the last 3 months, fever, chills, difficulty walking. She has past medical history of anxiety, anemia, gastritis, panic disorder. No surgical history. Medication: Motrin. ROS All systems reviewed and are negative except as per history of present illness. Medications Home Meds Active Scripts Ibuprofen* (Motrin*) 800 Mg Tab, 800 MG PO Q8 Y for PAIN AND OR ELEVATED TEMP, # 30 TAB Prov:KATHERYN ALMARAZ 09/27/17 Meclizine Hcl* (Meclizine Hcl*) 25 Mg Tablet, 25 MG PO Q8H Y for DIZZINESS, #20 TAB Prov:KATHERYN ALMARAZ 09/27/17 Cyclobenzaprine Hcl* (Cyclobenzaprine Hcl*) 10 Mg Tablet, 10 MG PO Q12 Y for MUSCLE SPASMS, #15 TAB Prov:KATHERYN ALMARAZ 09/27/17 Ondansetron (Ondansetron Odt) 4 Mg Tab.rapdis, 4 MG PO Q6H Y for NAUSEA AND/OR VOMITING, #20 TAB Prov:LAURYN LEACH NP 09/08/17 Icmydizgplxwd-Yqpssnqwot-Vzvipnei-Codeine* (Fioricet w/Codeine*) [id number] -30MG Cap, 1 CAP PO Q4H Y for PAIN LEVEL 1-5, #20 CAP Prov:LAURYN LEACH NP 09/08/17 Meclizine Hcl* (Meclizine Hcl*) 25 Mg Tablet, 25 MG PO Q12 Y for DIZZINESS, #20 TAB Prov:KATHERYN ALMARAZ 06/05/17 Ibuprofen* (Motrin*) 800 Mg Tab, 800 MG PO Q8 Y for PAIN AND OR ELEVATED TEMP, # 30 TAB Prov:KATHERYN ALMARAZ 06/05/17 Amoxicillin/Potassium Clav (Amox-Clav 875-125 mg Tablet) 875-125 mg Tab, 1 TAB PO BID for 7 Days, #14 TAB Prov:KATHERYN ALMARAZ 06/05/17 Clotrimazole* (Clotrimazole* AF) 1% - 30 Gm Cream.gm., 1 APPLIC TOP BID for 7 Days, TUB Prov:LAURYN LEACH NP 04/23/17 Metronidazole* (Flagyl*) 500 Mg Tablet, 500 MG PO TID for 10 Days, TAB Prov:LAURYN LEACH NP 04/23/17 Cephalexin* (Keflex*) 500 Mg Capsule, 500 MG PO QID for 10 Days, CAP Prov:LAURYN LEACH NP 04/23/17 Ibuprofen* (Motrin*) 600 Mg Tab, 600 MG PO Q6H Y for PAIN AND OR ELEVATED TEMP, #30 TAB Prov:LAURYN LEACH NP 04/23/17 Tramadol HCl (Tramadol HCl) 50 Mg Tablet, 50 MG PO Q6 for SEVERE PAIN LEVEL 7-10 , #20 TAB Prov:LAURYN LEACH NP 04/23/17 Azithromycin* (Zithromax*) 250 Mg Tablet, 250 MG PO .SUE DIRECTED, #6 TAB TAKE 500 MG (2 TABS) THE FIRST DAY THEN 250 MG (1 TAB) DAYS 2-5 Prov:LAURYN LEACH NP 03/07/17 Albuterol Sulfate* (Proair HFA*) 8.5 Gm Hfa.aer.ad, 2 PUFF INH Q4H Y for WHEEZING AND SOB, #1 INHALER Prov:LAURYN LEACH NP 03/07/17 Ibuprofen* (Motrin*) 600 Mg Tab, 600 MG PO Q6H Y for PAIN AND OR ELEVATED TEMP, #30 TAB Prov:LAURYN LEACH NP 03/07/17 Cetirizine Hcl* (Zyrtec*) 10 Mg Capsule, 10 MG PO DAILY, #30 TAB.CHEW Prov:LAURYN LEACH [employer] 03/07/17 Oqkejvlwyin-B-Nujfivbcur Hb* (Guaifenesin* DM Syrup) 120 Ml Syrup, 10 ML PO Q4H Y for COUGH, #120 ML Prov:LAURYN LEACH [employer] 03/07/17 Meclizine Hcl* (Meclizine Hcl*) 25 Mg Tablet, 25 MG PO Q8H Y for DIZZINESS, #14 TAB Prov:NENO SHULTZ MD 01/28/17 Prednisone* (Prednisone*) 20 Mg Tab, 40 MG PO DAILY for 4 Days, TAB Prov:NENO SHULTZ MD 01/28/17 Azithromycin* (Zithromax*) 250 Mg Tablet, 250 MG PO .ZPACK DIRECTED, #6 TAB TAKE 500 MG (2 TABS) THE FIRST DAY THEN 250 MG (1 TAB) DAYS 2-5 Prov:NENO SHULTZ MD 01/28/17 Polymyxin B Sulfate-TMP* (Polymyxin B-TMP Eye Drops*) 10 Ml Drops, 1 DROP BOTH EYES QID for 7 Days, #1 BOTTLE Prov:SHANICE RAYO PA-C 01/14/17 Ibuprofen* (Motrin*) 600 Mg Tab, 600 MG PO Q6, #30 TAB Prov:JOHN FLANAGAN 01/12/17 Reported Medications [No Meds] No Conflict Check 02/20/14 Allergies Allergies: Coded Allergies: No Known Allergy (Unverified , 09/27/17) PMhx/Soc History of Surgery: No Anesthesia Reaction: No Hx Neurological Disorder: No Hx Respiratory Disorders: No Hx Cardiac Disorders: No Hx Psychiatric Problems: Yes (anxiety, depression) Hx Miscellaneous Medical Probl: Yes (anemia, gastritis) Hx Alcohol Use: No Hx Substance Use: No Hx Tobacco Use: No Physical Exam Vitals Vital Signs Date Time Temp Pulse Resp B/P Pulse Ox O2 Delivery O2 Flow Rate FiO2 09/27/17 10:09 97.6 81 18 114/56 98 Physical Exam Const: Well-appearing. Head: Atraumatic Eyes: Normal Conjunctiva ENT: Normal External Ears, Nose and Mouth. Neck: Full range of motion..~ No meningismus. Resp: Clear to auscultation bilaterally Cardio: Regular rate and rhythm, no murmurs Abd: Soft, non tender, non distended. Normal bowel sounds. There is no right upper/right lower/epigastric/left upper/left lower abdominal tenderness and likely palpation. Negative Layland sign (heel jar test). Negative Rovsing' s sign. Negative psoas sign. Able to jump 5 times without developing abdominal pain. Skin: No petechiae or rashes Back: No midline or flank tenderness. No CVA tenderness. Ext: No cyanosis, or edema Neur: Awake and alert. Psych: Normal Mood and Affect Results 24 hrs Laboratory Tests Test 09/27/17 11:30 Urine Color YELLOW Urine Clarity CLEAR Urine pH 7.0 Urine Specific Rentz 1.016 Urine Ketones NEGATIVEmg/dL Urine Nitrite NEGATIVEmg/dL Urine Bilirubin NEGATIVEmg/dL Urine Urobilinogen NEGATIVEmg/dL Urine Leukocyte Esterase NEGATIVELeu/ul Urine Hemoglobin NEGATIVEmg/dL Urine Glucose NEGATIVEmg/dL Urine Total Protein NEGATIVEmg/dl Procedures/MDM I have low suspicion for abdominal aortic aneurysm given to the patient is young and has no family history of heart attack or heart disease, stroke before the age of 50. I have low suspicion for kidney stone or nephrolithiasis given that the patient physical exam has no CVA tenderness and she denies hematuria. I have low suspicion for pelvic inflammatory disease given that the patient has no vaginal discharge, no pelvic pain. POC urine : Negative. Urinalysis: Unremarkable. Final diagnosis: Musculoskeletal spasms, muscle spasms. Prescription: Motrin. Flexeril. Meclezine. Follow-up with PCP in the next 3-4 days. Come back here in the emergency department for any new symptoms or any worsening symptoms. All questions and concerns are answered. Patient verbalized understanding and agreed with the plan of care. Hemodynamically stable on discharge. Departure Diagnosis: Primary Impression: Flank pain Additional Impressions: Muscle spasm Medication refill Condition: Stable Additional Instructions: Follow-up with PCP in the next 3-4 days. Come back here in the emergency department for any new symptoms or any worsening symptoms. All questions and concerns are answered. Patient verbalized understanding and agreed with the plan of care. KATHERYN ALMARAZ Sep 27, 2017 11:23
[2017-09-27 11:54] LABS: ADD UMIC NO; UR ASCORBIC ACID NEGATIVE (NEGATIVE); UR BILIRUBIN (Dip) NEGATIVE (NEGATIVE); UR BLOOD (Dip) NEGATIVE (NEGATIVE); UR CLARITY CLEAR (CLEAR); UR COLOR YELLOW (YELLOW); UR GLUCOSE (Dip) NEGATIVE (NEGATIVE); UR KETONES (Dip) NEGATIVE (NEGATIVE); UR LEUKOCYTE ESTERASE (Dip) NEGATIVE Leu/ul (NEGATIVE); UR NITRITE (Dip) NEGATIVE (NEGATIVE); UR SPECIFIC GRAVITY (Dip) 1.016 (1.003-1.030); UR TOTAL PROTEIN (Dip) NEGATIVE (NEGATIVE); UR UROBILINOGEN (Dip) NEGATIVE (NEGATIVE)
[2017-09-27] MEDS ORDERED: CYCL-319 PO (12:19)
[2017-09-27] MEDS ORDERED: MECL-77 PO (12:19)
[2017-09-27] MEDS ORDERED: IBUP800T25 PO (12:20)
== END 2017-09-27 12:35 | disposition home or self-care (01) ==
LOC: FTE 10:08
DX: R10.9 Unspecified abdominal pain (principal); M62.838 Other muscle spasm; Z76.0 Encounter for issue of repeat prescription
CPT/HCPCS: 81003; 99283

== ENCOUNTER 2017-12-18 01:06 | Emergency (ER) | END 2017-12-18 05:16 | disposition home or self-care (01) ==

== ENCOUNTER 2018-06-12 12:12 | Emergency (ER) | END 2018-06-12 15:32 | disposition home or self-care (01) ==

== ENCOUNTER 2018-12-23 19:34 | Emergency (ER) | payer OTHER ==
[~2018-12-23] VITALS: Ht 160 cm; Wt 144.0 kg
[~2018-12-23 19:34] MED LIST changes: -ALBU8.5H3 INH; +ALBU8.5H8 INH; +AZIT250T PO; -AZIT250T94 PO; +CARB15DR50 BOTH EARS; +CETI1TAB6 PO; +CYCL10TA7 PO; +FLUT9.9S NASAL; +IBUP-1541 PO; -IBUP800T25 PO; +IBUP800T48 PO; +ONDA4TAB8 PO; +SODI126M NASAL
[2018-12-23 19:40] VITALS: BP 141/77; PULSE 82; RESP 18; Ht 160 cm; Wt 144.0 kg
[2018-12-23] MEDS ORDERED: ACET500C5 PO (20:28)
[2018-12-23] MEDS ORDERED: FAMO-96 PO (20:28)
[2018-12-23] MEDS ORDERED: FAMOTIDINE 20 MG TAB PO ONE (20:30)
[2018-12-23] MEDS ORDERED: ACETAMINOPHEN 325 MG TAB PO ONE (20:30)
--- NOTE | 2018-12-23 20:33 | ERD ---
ER Documentation Chief Complaint Chief Complaint ST, AP, NAUSEA X'S 1 DAY HPI 23-year-old female presents with sensation of sore throat that her throat is closing, as well as mild epigastric pain and chest pain for last day. She admits to a history of anxiety she is currently being treated with Lexapro and be evaluated by psychiatrist. She denies any shortness of breath, fevers, cough, additional symptoms. ROS All systems reviewed and are negative except as per history of present illness. Medications Home Meds Active Scripts Famotidine* (Pepcid*) 20 Mg Tablet, 20 MG PO BID for 7 Days, #15 TAB Prov:NENO SHULTZ MD 12/23/18 Acetaminophen* (Tylophen*) 500 Mg Capsule, 1 CAP PO Q6H PRN for PAIN AND OR ELEVATED TEMP, #15 CAP Prov:NENO SHULTZ MD 12/23/18 Sodium Chloride (Saline Nasal Mist) 126 Ml Mist, 1 SPRAY NASAL BID, #1 BOTTLE Prov:GALILEA RODRIGUEZ PA-C 06/12/18 Cetirizine/Pseudoephedrine (Zyrtec-D) 5-120 Mg Tab.er.12h, 1 TAB PO Q12, #30 TAB Prov:GALILEA RODRIGUEZ PA-C 06/12/18 Fluticasone Propionate (Flonase Allergy Relief) 9.9 Ml [place].susp, 1 SPRAY NASAL BID for 14 Days, #1 BOTTLE TO EACH NOSTRIL Prov:GALILEA RODRIGUEZ PA-C 06/12/18 Ibuprofen* (Ibuprofen*) 400 Mg Tablet, 400 MG PO Q6H PRN for PAIN, #30 TAB Prov:GALILEA RODRIGUEZ PA-C 06/12/18 Cephalexin* (Keflex*) 500 Mg Capsule, 500 MG PO BID for 7 Days, CAP Prov:JAMESPAULETTE MAK 12/18/17 Carbamide Peroxide* (Debrox*) 6.5% - 15 Ml Drops, 10 DROP BOTH EARS BID for 5 Days, BOTTLE Prov:PAULETTE RAMIREZ 12/18/17 Ibuprofen* (Motrin*) 600 Mg Tab, 600 MG PO Q6, #30 TAB Prov:JAMESPAULETTE MAK 12/18/17 Ondansetron Hcl* (Zofran*) 4 Mg Tablet, 4 MG PO Q6H for NAUSEA AND/OR VOMITING, #30 TAB Prov:PAULETTE RAMIREZ Shelli 12/18/17 Meclizine Hcl* (Meclizine Hcl*) 25 Mg Tablet, 25 MG PO Q8H PRN for DIZZINESS, #20 TAB Prov:PAULETTE RAMIREZ C 12/18/17 Ibuprofen* (Motrin*) 800 Mg Tab, 800 MG PO Q8 PRN for PAIN AND OR ELEVATED TEMP, #30 TAB Prov:KATHERYN ALMARAZ 09/27/17 Meclizine Hcl* (Meclizine Hcl*) 25 Mg Tablet, 25 MG PO Q8H PRN for DIZZINESS, #20 TAB Prov:KATHERYN ALMARAZ 09/27/17 Cyclobenzaprine Hcl* (Cyclobenzaprine Hcl*) 10 Mg Tablet, 10 MG PO Q12 PRN for MUSCLE SPASMS, #15 TAB Prov:KATHERYN ALMARAZ 09/27/17 Ondansetron (Ondansetron Odt) 4 Mg Tab.rapdis, 4 MG PO Q6H PRN for NAUSEA AND/OR VOMITING, #20 TAB Prov:LAURYN LEACH NP 09/08/17 Mllqrncxrfhvv-Zhsucbvlkw-Thyhkxmi-Codeine* (Fioricet w/Codeine*) [id number]-30MG Cap, 1 CAP PO Q4H PRN for PAIN LEVEL 1-5, #20 CAP Prov:LAURYN LEACH NP 09/08/17 Meclizine Hcl* (Meclizine Hcl*) 25 Mg Tablet, 25 MG PO Q12 PRN for DIZZINESS, #20 TAB Prov:KATHERYN ALMARAZ 06/05/17 Ibuprofen* (Motrin*) 800 Mg Tab, 800 MG PO Q8 PRN for PAIN AND OR ELEVATED TEMP, #30 TAB Prov:KATHERYN ALMARAZ 06/05/17 Amoxicillin/Potassium Clav (Amox-Clav 875-125 mg Tablet) 875-125 mg Tab, 1 TAB PO BID for 7 Days, #14 TAB Prov:KATHERYN ALMARAZ 06/05/17 Clotrimazole* (Clotrimazole* AF) 1% - 30 Gm Cream.gm., 1 APPLIC TOP BID for 7 Days, TUB Prov:LAURYN LEACH NP 04/23/17 Metronidazole* (Flagyl*) 500 Mg Tablet, 500 MG PO TID for 10 Days, TAB Prov:LAURYN LEACH NP 04/23/17 Cephalexin* (Keflex*) 500 Mg Capsule, 500 MG PO QID for 10 Days, CAP Prov:LAURYN LEACH NP 04/23/17 Ibuprofen* (Motrin*) 600 Mg Tab, 600 MG PO Q6H PRN for PAIN AND OR ELEVATED TEMP, #30 TAB Prov:LAURYN LEACH NP 04/23/17 Tramadol HCl (Tramadol HCl) 50 Mg Tablet, 50 MG PO Q6 for SEVERE PAIN LEVEL 7- 10, #20 TAB Prov:LAURYN LEACH NP 04/23/17 Azithromycin* (Zithromax*) 250 Mg Tablet, 250 MG PO .SUE DIRECTED, #6 TAB TAKE 500 MG (2 TABS) THE FIRST DAY THEN 250 MG (1 TAB) DAYS 2-5 Prov:LAURYN LEACH NP 03/07/17 Albuterol Sulfate* (Proair HFA*) 8.5 Gm Hfa.aer.ad, 2 PUFF INH Q4H PRN for WHEEZING AND SOB, #1 INHALER Prov:LAURYN LEACH NP 03/07/17 Ibuprofen* (Motrin*) 600 Mg Tab, 600 MG PO Q6H PRN for PAIN AND OR ELEVATED TEMP, #30 TAB Prov:LAURYN LEACH NP 03/07/17 Cetirizine Hcl* (Zyrtec*) 10 Mg Capsule, 10 MG PO DAILY, #30 TAB.CHEW Prov:LAURYN LEACH NP 03/07/17 Vvfgwgbdlkw-N-Hgaoswfpzd Hb* (Guaifenesin* DM Syrup) 120 Ml Syrup, 10 ML PO Q4H PRN for COUGH, #120 ML Prov:LAURYN LEACH NP 03/07/17 Meclizine Hcl* (Meclizine Hcl*) 25 Mg Tablet, 25 MG PO Q8H PRN for DIZZINESS, #14 TAB Prov:NENO SHULTZ MD 01/28/17 Prednisone* (Prednisone*) 20 Mg Tab, 40 MG PO DAILY for 4 Days, TAB Prov:NENO SHULTZ MD 01/28/17 Azithromycin* (Zithromax*) 250 Mg Tablet, 250 MG PO .ZPACK DIRECTED, #6 TAB TAKE 500 MG (2 TABS) THE FIRST DAY THEN 250 MG (1 TAB) DAYS 2-5 Prov:NENO SHULTZ MD 01/28/17 Polymyxin B Sulfate-TMP* (Polymyxin B-TMP Eye Drops*) 10 Ml Drops, 1 DROP BOTH EYES QID for 7 Days, #1 BOTTLE Prov:SHANICE RAYO PA-C 01/14/17 Ibuprofen* (Motrin*) 600 Mg Tab, 600 MG PO Q6, #30 TAB Prov:JOHN FLANAGAN MD 01/12/17 Reported Medications [No Meds] No Conflict Check 02/20/14 Allergies Allergies: Coded Allergies: No Known Allergy (Unverified , 12/18/17) PMhx/Soc History of Surgery: No Anesthesia Reaction: No Hx Neurological Disorder: No Hx Respiratory Disorders: No Hx Cardiac Disorders: No Hx Psychiatric Problems: Yes (DEPRESSION, PANIC ATTACKS(ANXIETY)) Hx Miscellaneous Medical Probl: Yes (ANEMIA, MIGRAINES) Hx Alcohol Use: No Hx Substance Use: No Hx Tobacco Use: No Smoking Status: Never smoker FmHx Family History: No diabetes, No coronary disease, No other Physical Exam Vitals Vital Signs Date Temp Pulse Resp B/P (MAP) Pulse Ox O2 O2 Flow FiO2 Time Delivery Rate 12/23/18 98.6 82 18 141/77 97 19:40 (98) Physical Exam Const: No acute distress. Morbidly obese. Head: Atraumatic Eyes: Normal Conjunctiva ENT: Normal External Ears, Nose and Mouth. Oral pharynx normal. Neck: Full range of motion. No meningismus. Resp: Clear to auscultation bilaterally Cardio: Regular rate and rhythm, no murmurs reproducible costochondral pain. Mild epigastric tenderness. No tenderness McBurney's point no Abdi sign. Abd: Soft, non tender, non distended. Normal bowel sounds Skin: No petechiae or rashes Back: No midline or flank tenderness Ext: No cyanosis, or edema. No calf swelling or Homans sign. Neur: Awake and alert Psych: Normal Mood and Affect Results 24 hrs Current Medications Medications Dose Sig/Leon Start Time Status Last (Trade) Ordered Route PRN Stop Time Admin Dose Reason Admin 650 mg ONCE ONCE 12/23/18 Acetaminophen PO 20:30 12/23/18 (Tylenol 20:31 Tab) Famotidine 20 mg ONCE ONCE 12/23/18 12/23/18 (Pepcid) PO 20:30 12/23/18 20:20 20:31 Procedures/MDM Patient was given Tylenol and Pepcid. EKG: Rate/Rhythm: Normal Sinus Rhythm and rate equals 81 QRS, ST, T-waves: No changes consistent w/ acute ischemia Impression: No evidence of ischemia or arrhythmia. Impression-normal EKG Presents with sensation of throat closing off, pain, as well as reproducible chest pain and epigastric pain. She may have a globus sensation given her history of anxiety and normal exam. She has no signs or symptoms suggest cardiac chest pain, significant abdominal pain. We will treat empirically with reassurance, Tylenol, Pepcid, primary care follow-up and return precautions. The patient was stable with no new complaints during the ER course. Clinically, there is no current evidence to suggest meningitis, sepsis, acute abdomen, pneumonia, stroke, acute coronary syndrome, pulmonary embolism, aortic dissection or any other emergent condition appearing to require further evaluation or hospitalization. Patient counseled regarding my diagnostic impression and care plan. Prior to discharge all questions answered. Pt agrees with treatment plan and understands strict return precautions. Pt is instructed to follow up with primary care provider within 24-48 hours. Precautionary instructions provided including instructions to return to the ER if not improving or for any worsening or changing symptoms or concerns. Departure Diagnosis: Primary Impression: Anxiety Additional Impressions: Gastritis Gastritis type: unspecified gastritis Chronicity: unspecified Gastritis bleeding: presence of bleeding unspecified Qualified Codes: K29.70 - Gastritis, unspecified, without bleeding Sore throat Condition: Stable Patient Instructions: Anxiety Reaction, Gerd (Adult) Additional Instructions: EKG normal. Suspect gastritis or anxiety reaction. Recheck for new or worsening symptoms with primary care doctor. NENO SHULTZ MD Dec 23, 2018 20:33
== END 2018-12-23 20:41 | disposition home or self-care (01) ==
LOC: FTE 19:34
DX: F41.9 Anxiety disorder, unspecified (principal); K29.70 Gastritis, unspecified, without bleeding; R10.13 Epigastric pain
CPT/HCPCS: 93005; Z7502; Z7610